=== PATIENT | female | born 1985 | race Caucasian/White ===

== ENCOUNTER → 2019-05-22 | Outpatient (CLI) | payer OTHER ==
--- NOTE | 2019-05-22 13:44 | ECGEPIP ---
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 Electronically Signed on 05-22-2019 13:44:09 EDT by Edgar Fisher
== END ==
LOC: M EKG 13:03
PROVIDERS: ATTEND Nurse Practitioner Women's Health
DX: O24.111 Pre-existing type 2 diabetes mellitus, in pregnancy, first trimester (principal); E11.9 Type 2 diabetes mellitus without complications; Z3A.09 9 weeks gestation of pregnancy

== ENCOUNTER 2019-10-21 10:19 | Outpatient (CLI) | payer OTHER ==
[~2019-10-21] VITALS: Ht 172.7 cm; Wt 109.0 kg
[2019-10-21 10:36] VITALS: BP 130/77
[2019-10-21] MEDS ORDERED: FLON27.5 NARES (11:05)
[2019-10-21] MEDS ORDERED: LABE200T32 PO (11:05)
[2019-10-21] MEDS ORDERED: ALBU83IN NEB (11:05)
[2019-10-21] MEDS ORDERED: GNP28TAB2 PO (11:05)
[2019-10-21] MEDS ORDERED: ALLE60TA69 PO (11:05)
[2019-10-21] MEDS ORDERED: EYEDRO5 OP (11:05)
[2019-10-21] MEDS ORDERED: ASPI81CH33 PO (11:05)
--- NOTE | 2019-10-21 11:13 | REPVR ---
PROCEDURE INFORMATION: Exam: US Biophysical Profile Without Non-Stress Test Exam date and time: 10/21/2019 10:59 AM Age: 34 years old Clinical indication: Screening exam; Routine US screening of fetus; Third; ; Additional info: Non reactive nst, chtn, gdm TECHNIQUE: Imaging protocol: US biophysical profile without non-stress testing. COMPARISON: No relevant prior studies available. FINDINGS: heart rate: 147 bpm. Presentation: Cephalic. Placenta: Fundal, grade 1. No previa. Amniotic fluid index: 8.3 cm (largest pocket 3.4 cm) BIOPHYSICAL PROFILE: Breathin/2 Gross body movements: 2/2 tone: 2/2 Qualitative amniotic fluid: 2/2 Biophysical Profile Score: 8/8 DOPPLER: Umbilical artery Doppler: S/D ratio 3.18. IMPRESSION: Biophysical profile score is 8 out of 8. Electronically signed by: Saeed Estrada On 10/21/2019 11:13:03 AM
[2019-10-21 12:35] VITALS: BP 114/58
--- NOTE | 2019-10-21 14:31 | IPNPDOC ---
Obstetrical Progress Note Date of Service Oct 21, 2019 Subjective 34-year-old 5, para 4 at 31 weeks 2 days, presents from the OB office for 9. Reactive NST. She reports active movements. She denies any vaginal bleeding, leakage of fluid or contractions. Objective: Vital signs stable and afebrile. Category 1 rate tracing. Gen.: Well-appearing, no acute distress Abdomen: Soft, nontender, gravid. Formal ultrasound ordered showing 8 out of 8 biophysical profile Assessment: 34-year-old 5, para 4, 31 weeks 2 days estimated gestational age with reassuring status. Plan: Discharge home and follow-up Sunday for office appointment. labor precautions and kick count instructions Objective Vital Signs Date Time Temp Pulse Resp B/P (MAP) Pulse Ox O2 Delivery O2 Flow Rate FiO2 10/21/19 12:35 97.3 80 18 114/58 (76) Assessment Variability: Moderate Accelerations: Positive Heart Rate Tracing: Category I Tocometer Contractions: No Assessment and Plan Age: 34 : 5 Livin Status: Reassuring SIMRAN KUHN MD. Oct 21, 2019 14:31
== END 2019-10-21 12:35 | disposition home or self-care (01) ==
LOC: M LDO 10:19
PROVIDERS: ATTEND Obstetrics & Gynecology
DX: O26.893 Other specified pregnancy related conditions, third trimester (principal); Z3A.31 31 weeks gestation of pregnancy
CPT/HCPCS: 59025; 76815; 76819; 76820; G0378; G0463

== ENCOUNTER → 2019-11-07 | Outpatient (CLI) | payer OTHER ==
[~2019-11-07] MED LIST: ALBU83IN NEB; ALLE60TA69 PO; ASPI81CH33 PO; EYEDRO5 OP; FLON27.5 NARES; GNP28TAB2 PO; LABE200T32 PO
--- NOTE | 2019-11-07 10:33 | REPVR ---
PROCEDURE INFORMATION: Exam: US Biophysical Profile Without Non-Stress Test Exam date and time: 11/07/2019 9:55 AM Age: 34 years old Clinical indication: Screening exam; Routine US screening of fetus; Third; ; Additional info: Non-reactive nst TECHNIQUE: Imaging protocol: US biophysical profile without non-stress testing. COMPARISON: US OB 10/21/2019 11:00 AM FINDINGS: Single living intrauterine fetus in cephalic presentation. The heart rate is 147 bpm. The estimated gestational age by the 1st ultrasound exam is 33 weeks and 6 days with an MARY JO of 12/20/2019. Amniotic fluid volume MILO measures 8.3 cm which is borderline low. Placenta: The placenta is fundal, grade I, with no previa or abruptio. BIOPHYSICAL PROFILE: Breathin/2 Gross body movements: 2/2 tone: 2/2 Qualitative amniotic fluid: 2/2 Biophysical Profile Score: 8/8 The umbilical artery S/D ratio measures 2.14 which is within normal limits. The umbilical artery RI measured 0.53 which is within normal limits. The umbilical artery PSV is 49.0 cm/sec and EDV is 22.9 cm/sec. IMPRESSION: 1. Single living intrauterine fetus in cephalic presentation. The heart rate is 147 bpm. The estimated gestational age by the first ultrasound exam is 33 weeks and 6 days with an MARY JO of 12/20/2019. Amniotic fluid volume MILO measures 8.3 cm which is borderline low. 2. Biophysical profile score is 8 out of 8. Electronically signed by: David Mendiola On 11/07/2019 10:32:48 AM
== END ==
LOC: M RAD 08:56
PROVIDERS: ATTEND Obstetrics & Gynecology
DX: O36.8330 Maternal care for abnormalities of the fetal heart rate or rhythm, third trimester, not applicable or unspecified (principal); Z3A.33 33 weeks gestation of pregnancy

== ENCOUNTER 2019-12-07 11:59 | Inpatient (IN) | payer OTHER ==
[~2019-12-07] VITALS: Ht 172.7 cm; Wt 110.4 kg
[2019-12-07] VITALS (32 sets, daily range): BP systolic 114–173; BP diastolic 61–97
--- NOTE | 2019-12-07 13:25 | HPEPDOC ---
Obstetrical History & Physical General Date of Admission Dec 07, 2019 at 11:59 History of Present Illness 34yo at 38+1wks presenting for IOL for h/o CHTN on labetalol and preexisiting DM (no meds). Patient noted to have h/o 2 prior sections and 2 prior successful VBACs, patient desires TOLAC for this . Denies VB, LOF, regular ctx's, or DFM. Chief Complaint: Induction of labor Information Provided By: Patient Care Care: Good Care Dating Final EDC: Dec 20, 2019 Final EDC for Daily Update: Dec 20, 2019 Final EDC by: LMP (c/w 9+5wk U/S on [id number]) Antepartum Course Diagnos(e)s Preexisting DM (diet-controlled) complicating Preexisting hypertension complicating Obesity complicating History of section x2, history of successful x2 Height (inches): 68 Pre- weight (lbs.): 236 Admission Weight (lbs.): 241 Change in Weight (lbs.): 5 Past Medical History Past Obstetrical History : Past Obstetrical History: Multigravida ( - G1: PLTCS for arrest of dilation/NRFHR, G2: 7fxm8ex, G3: RLTCS for NRFHR 1rcc3fd, G4: 5gdp6rf, G5: current) Past Medical History Medical History Asthma CHTN DMII Allergic rhinitis Surgical History: section (2007, 2014), Gallbladder, Other (Left oopherectomy 2013) Family History Significant Family History: Hypertension (Mother, Father, PGM, Siblings) Social History Marital Status: Family situation: Spouse/partner home Psychosocial History: No pertinent psych hx * Smoker: non-smoker Alcohol: Denies Drugs: denies Abuse Violence Screening Have you been hit/kicked/slapp: No Have you been sexually assault: No Imunizations Tdap status: current ([id number]) Influenza Status: declined Allergies Coded Allergies: SEASONAL ALLERGIES (Verified Allergy, Intermediate, 12/07/19) Medications Scheduled Aspirin (Aspirin) 81 Mg Tab.chew, 1 TAB PO DAILY for pain Fexofenadine HCl (Didi Allergy) 60 Mg Tablet, 1 TAB PO QPM for allergy symptoms Fluticasone Furoate (Flonase Sensimist) 5.9 Ml [place].susp, 2 PUFF NARES QPM Labetalol HCl (Labetalol HCl) 200 Mg Tablet, 200 MG PO BID Pnv No.95/Ferrous Fum/Folic AC ( Vitamins Tablet) 1 Each Tablet, 1 TAB PO DAILY Tetrahydroz/Dext 70/Peg 400/Pv (Eye Drops) 15 Ml Drops, 1 SELINA OP QPM Scheduled PRN Albuterol Sulf (Albuterol Sulfate) 2.5 Mg/3 Ml Vial.neb, 1 VIAL NEB Q4HP PRN for wheezing Physical Examination Physical Examination GENERAL: Alert and oriented times three. ABDOMEN: Gravid and non-tender to touch. FETUS: Is vertex (VTX) by sterile vaginal examination (SVE), fetus is vertex (VTX) by Dima. CARDS: well-perfused RESP: no exaggerated respiratory effort observed, no cough EXTREMITIES: No edema. : NEFG, no abnml vaginal discharge, no pooling, SVE /-2 Laboratory Data 24H LABS Laboratory Tests 2 12/07/19 12:07: Serology Scanned Report Hepatitis B Testing Urine Culture: No Growth Pertinent Laboratoy Data Blood Type: AB+ RBC Antibody Screen: Negative HIV: Negative Hepatitis B: Negative Rapid Plasma Reagin: Nonreactive Rubella: Immune Varicella: Immune Chlamydia/Gonorrhea: Negative Group B Streptococcus: Negative (11/13/2019) Quad Screen Test: Declined Cystic Fibrosis: Negative Glucose Tolerance Test: 198 Anatomy Ultrasound Ultrasound Date: Aug 04, 2019 Placenta Location: Posterior Normal Anatomy: Yes Placenta Previa: No Vaginal Examination Dilation: 3 cm Effacement: 70% Station: -2 Cervical Consistency: Soft Cervical Position: Posterior Presentation: Cephalic presentation Assessment Heart Rate (FHR): 145 Variability: Moderate Accelerations: Positive Decelerations: None Tocometer Contractions: No Multi-drug resistant Organism: No history of MDRO Assessment/Plan Assessment Vita is a 34yo at 38+1wks presenting to L&D for IOL for CHTN on labetalol and DMII (no meds). Patient has h/o 2 prior sections and 2 prior successful VBACs. Patient desires TOLAC for this . GBS neg. EFW 2900g. SVE /-2. Membranes intact. Plan Admit and orient. Cord Cutter and consent. Diet: clears Group B Streptococcus (GBS) negative. Labs and intravenous (IV) per unit protocol. Counseled on Pitocin and induction of labor (IOL). We discussed placement of IUPC for monitoring of MVUs once membranes ruptured for closer monitoring of uterine activity. Continue labetalol 200mg BID Continue singulair, flonase Lactated Ringers (LR): at 125mL/hr. Anticipate normal spontaneous delivery (). C-S as appropriate. ASPEN HERNANDEZ DO Dec 07, 2019 13:25
[2019-12-07 13:26] LABS: HEMATOCRIT 37.7 % (36.0-47.0); HEMOGLOBIN 12.2 g/dl (12.0-15.5); MEAN CORPUSCULAR HEMOGLOBIN 28.8 pg (27.0-33.0); MEAN CORPUSCULAR HGB CONC 32.4 g/dl (32.0-36.5); MEAN CORPUSCULAR VOLUME 88.9 fl (80.0-96.0); PLATELET COUNT, AUTOMATED 327 10^3/uL (150-450); RED BLOOD COUNT 4.24 10^6/uL (4.00-5.40); WHITE BLOOD COUNT 8.5 10^3/uL (4.0-10.0)
[2019-12-07 13:48] LABS: GLUCOSE,RANDOM 96 MG/DL (LESS THAN 200)
[2019-12-07] MEDS ORDERED: FENTANYL 2MCG/ML ROPIVACAINE 0.2% IN 0.9% NACL 100ML IVBAG As Ordered ONE (16:32)
[2019-12-07] MEDS ORDERED: EPIDURAL COMMENT XX SCH (18:00)
[2019-12-07] MEDS ORDERED: ONDANSETRON 4MG/2ML VIAL IV PRN (18:00)
[2019-12-07] MEDS ORDERED: diphenhydrAMINE 50MG/ML VIAL (J1200) IV PRN (18:00)
[2019-12-07] MEDS ORDERED: FENTANYL/ROPIVACAINE/NACL BAG 100 ML EPIDURAL SCH (18:00)
[2019-12-07] MEDS ORDERED: REFRIGERATOR IV KEYS XX PRN (18:00)
[2019-12-07] MEDS ORDERED: EPIDURAL/PCA KEYS XX PRN (18:00)
[2019-12-07] MEDS ORDERED: NALOXONE INJ 0.4MG/1ML VIAL (J2310 PER 1MG) IV PRN (18:00)
[2019-12-07] MEDS ORDERED: ePHEDrine SULFATE 25 MG/5 ML(5MG/ML) SYRINGE IV PRN (18:00)
[2019-12-07] MEDS ORDERED: LACTATED RINGER'S 1000 ML IV PRN (18:00)
--- NOTE | 2019-12-07 18:13 | IPNPDOC ---
Obstetrical Progress Note Date of Service Dec 07, 2019 Subjective Patient feeling ctx's but reports tolerable. Objective Vital Signs Date Time Temp Pulse Resp B/P (MAP) Pulse Ox O2 Delivery O2 Flow Rate FiO2 12/07/19 16:44 79 142/79 (100) 12/07/19 12:21 97.6 18 Assessment Heart Rate (FHR): 140 Variability: Moderate Accelerations: Positive Decelerations: None Heart Rate Tracing: Category I Tocometer Contractions: Yes Frequency: every 2-5 min. Sterile Vaginal Examination Dilation: 4 cm Effacement (%): 80% Station: -2 Cervical Consistency: Soft Cervical Position: Middle Postion/Presentation: Cephalic presentation Assessment and Plan Status: Reassuring Group B Streptococcus: Negative Anticipate: Vaginal Delivery Additional Comments Pitocin protocol at 6mU/min. SVE now 4/80/-2. FHRT cat I until difficulty keeping FHR on external monitor. Patient counseled and consented for AROM. Patient amenable to AROM. AROM performed at 1558 notable for clear fluid. IUPC and FSE placed for closer monitoring showing cat I FHRT. Patient may have epidural if desired. Continue pitocin protocol to MVUs of 180-200. Patient desires to proceed, safe to continue. Late entry due to patient acuity: patient seen at 1555, note completed at 1813 ASPEN HERNANDEZ DO Dec 07, 2019 18:13
--- NOTE | 2019-12-07 18:16 | IPNPDOC ---
Obstetrical Progress Note Date of Service Dec 07, 2019 Subjective Patient received epidural for pain control but only working on left side. Objective Vital Signs Date Time Temp Pulse Resp B/P (MAP) Pulse Ox O2 Delivery O2 Flow Rate FiO2 12/07/19 16:44 79 142/79 (100) 12/07/19 12:21 97.6 18 Assessment Heart Rate (FHR): 140 Variability: Moderate Accelerations: Positive Decelerations: Variable Heart Rate Tracing: Category II Tocometer Contractions: Yes Frequency: every 2-5 min. Sterile Vaginal Examination Dilation: 5 cm Effacement (%): 80% Station: -1 Cervical Consistency: Soft Cervical Position: Anterior Postion/Presentation: Cephalic presentation Assessment and Plan Status: Reassuring Group B Streptococcus: Negative Anticipate: Vaginal Delivery Additional Comments Notified by RN that IUPC was displaced during epidural placement. SVE revealed 5/80/-1. IUPC replaced. FHRT notable for intermittent variable decels. Pitocin at 8mU/min. Positional changes applied to assist with epidural to work on right side and to improve FHRT. Will continue to monitor closely for expectant . If variable decels continue, consider amnioinfusion. Patient desires to proceed, safe to continue. ASPEN HERNANDEZ DO Dec 07, 2019 18:16
--- NOTE | 2019-12-07 20:52 | DNPDOC ---
[facility] Delivery Note Delivery Note DATE OF DELIVERY: 12/07/2019 PREDELIVERY DIAGNOSIS: 1.) 38+1/7 weeks' gestation and labor. 2.) Pre-existing hypertension complicating 3.) Pre-existing diabetes complicating 4.) Obesity complicating 5.) History of previous section POST DELIVERY DIAGNOSIS: 1.) 38+1/7 weeks' gestation and labor. 2.) Pre-existing hypertension complicating 3.) Pre-existing diabetes complicating 4.) Obesity complicating 5.) History of previous section 6.) Vaginal after section PROCEDURE: Vaginal after section RECYCLING CREW SUPERVISOR: Dr. Aspen Hernandez ANESTHESIA: Epidural. ESTIMATED BLOOD LOSS: 100 mL. FINDINGS: 5 pound 5 ounce 2410g female , Score 9/9, nuchal cord times x1. DELIVERY SUMMARY: FHRT notable for deep variable decels despite positional changes. SVE revealed c/c/+3. Patient prepped for delivery. With excellent maternal effort over 2 pu shes, spontaneous vaginal delivery of a viable female . Presentation was OA with restitution to ROT with left shoulder anterior position. Nuchal cord x1 reduced on perineum. Anterior shoulder and body delivered spontaneously. Infant with vigorous cry on delivery field therefore placed on maternal abdomen to be dried. Pitocin IV bolus initiated. Inspection revealed a vaginal floor laceration that was repaired with 2-0 vicryl in running fashion with hemostasis achieved. Three vessel cord clamped x2 and cut by FOB. Third stage spontaneous with intact placenta. Fundal massage revealed firm uterine tone with hemostasis appreciated. Mother and infant stable and bonding upon my leaving the room. EBL 100ml. ASPEN HERANNDEZ DO Dec 07, 2019 20:50
--- NOTE | 2019-12-08 07:15 | IPNPDOC ---
Progress Note Date of Service: Dec 08, 2019 Day#: 1 Progress Note SUBJECT: 34yo s/p doing well day # 1. She has been ambulating, voiding spontaneously without issue and tolerating regular diet. Breast feeding without issue. Reports lochia is decreasing. Reports pain c ontrolled. OBJECTIVE: VITAL SIGNS: Within normal limits, afebrile. Alert and oriented times three. RESP: no exaggerated respiratory effort appreciated, no cough CARDS: well-perfused Abdomen: Fundus firm at U-2. Soft, NTTP. : Small lochia, no edema ASSESSMENT: 34yo s/p doing well day # 1. PNC c/b CHTN on labetalol and diet-controlled DMII, and obesity. Normal to mild-ranging BP, afebrile, hemodynamically stable with no evidence of infection. PLAN: 1. Discharge to home tomorrow 2. Tylenol and Motrin for pain PRN. 3. Encourage breast feeding and ambulation. 4. Diabetic diet. 5. Continue labetalol 200mg BID, monitor vitals q4h and PRN VS, I&O, 24H, [facility] Vital Signs/I&O Vital Signs Date Time Temp Pulse Resp B/P (MAP) Pulse Ox O2 Delivery O2 Flow Rate FiO2 12/07/19 22:01 90 110/61 12/07/19 18:41 18 12/07/19 18:38 97.7 I&O- Last 24 Hours up to 6 AM 12/08/19 06:00 Intake Total 2063 ml Output Total 1600 ml Balance 463 ml Laboratory Data 24H LABS Laboratory Tests 2 12/07/19 12:07: Serology Scanned Report Hepatitis B Testing 12/07/19 13:01: Bedside Glucose (Misc Panel) 108H 12/07/19 13:07: Nucleated Red Blood Cells % (auto) 0.0, Random Glucose 96 12/07/19 19:18: Bedside Glucose (Misc Panel) 78 CBC/BMP Laboratory Tests 12/07/19 13:07 ASPEN HERNANDEZ DO Dec 08, 2019 07:15
[2019-12-08 17:44] VITALS: BP 138/74
[2019-12-08 21:00] VITALS: BP 128/73
--- NOTE | 2019-12-09 04:22 | IPNPDOC ---
Progress Note Date of Service: Dec 09, 2019 Day#: 2 Progress Note SUBJECT: 34yo s/p doing well day # 2. She has been ambulat ing, voiding spontaneously without issue and tolerating regular diet. Breast feeding without issue. Reports lochia is decreasing. Reports pain controlled. OBJECTIVE: VITAL SIGNS: Within normal limits, afebrile. Alert and oriented times three. RESP: no exaggerated respiratory effort appreciated, no cough CARDS: well-perfused Abdomen: Fundus firm at U-2. Soft, NTTP. : Small lochia, no edema ASSESSMENT: 34yo s/p doing well day # 2. PNC c/b CHTN on labetalol and diet-controlled DMII, and obesity. Normal to mild-ranging BP, afebrile, hemodynamically stable with no evidence of infection. PLAN: 1. Discharge to home today 2. Tylenol and Motrin for pain PRN. 3. Encourage breast feeding and ambulation. 4. Diabetic diet. 5. Continue labetalol 200mg BID, monitor vitals q4h and PRN VS, I&O, 24H, Fishbone Vital Signs/I&O Vital Signs Date Time Temp Pulse Resp B/P (MAP) Pulse Ox O2 Delivery O2 Flow Rate FiO2 12/08/19 21:00 75 16 128/73 (91) 96 Room Air 12/08/19 17:44 98.3 ASPEN HERNANDEZ DO Dec 09, 2019 04:22
[2019-12-09 05:38] VITALS: BP 147/75
[2019-12-09 09:15] VITALS: BP 147/75
[2019-12-09 09:45] VITALS: BP 135/72
== END 2019-12-09 12:50 | disposition home or self-care (01) | DRG 805 ==
LOC: M LDI 11:59 → M OBS 23:12
PROC: 10E0XZZ Delivery of Products of Conception, External Approach (ICD-10-PCS; principal; 2019-12-07)
PROC: 0HQ9XZZ Repair Perineum Skin, External Approach (ICD-10-PCS; 2019-12-07)
PROC: 10907ZC Drainage of Amniotic Fluid, Therapeutic from Products of Conception, Via Natural or Artificial Opening (ICD-10-PCS; 2019-12-07)
PROC: 3E033VJ Introduction of Other Hormone into Peripheral Vein, Percutaneous Approach (ICD-10-PCS; 2019-12-07)
DX: O10.02 Pre-existing essential hypertension complicating childbirth (principal); Z37.0 Single live birth; O24.12 Pre-existing type 2 diabetes mellitus, in childbirth; O99.214 Obesity complicating childbirth; E66.9 Obesity, unspecified; O34.211 Maternal care for low transverse scar from previous cesarean delivery; Z3A.38 38 weeks gestation of pregnancy; Z79.899 Other long term (current) drug therapy; O76 Abnormality in fetal heart rate and rhythm complicating labor and delivery; O69.81X0 Labor and delivery complicated by cord around neck, without compression, not applicable or unspecified; O70.0 First degree perineal laceration during delivery

== ENCOUNTER → 2020-09-02 | Outpatient (CLI) | payer OTHER ==
[2020-09-02 12:48] LABS: INR 0.98; PROTHROMBIN TIME 13.2 SECONDS (12.5-14.3)
[2020-09-02 12:59] LABS: ALBUMIN 4.6 GM/DL (3.2-5.2); ALT/SGPT 180 U/L (12-78); BILIRUBIN,DIRECT 0.2 MG/DL (0.0-0.2); BILIRUBIN,TOTAL 0.4 MG/DL (0.2-1.0); IRON (FE) 84 UG/DL (50-170); PERCENT SATURATION 18.8 % (13.2-45.0); TOTAL IRON BINDING CAPACITY 446 UG/DL (250-450); TOTAL PROTEIN 8.5 GM/DL (6.4-8.2)
[2020-09-02 13:15] LABS: HEPATITIS B SURFACE ANTIGEN NEGATIVE (NEGATIVE)
[2020-09-02 13:42] LABS: HEPATITIS B CORE ANTIBODY IGM NEGATIVE (NEGATIVE); HEPATITIS C VIRUS ABY INDEX 0.1 INDEX (<0.8)
[2020-09-02 13:45] LABS: HEPATITIS A ANTIBODY IGM NEGATIVE (NEGATIVE)
== END ==
LOC: M LAB 12:03
PROVIDERS: ATTEND Internal Medicine Gastroenterology
DX: R94.5 Abnormal results of liver function studies (principal)

== ENCOUNTER → 2020-09-21 | Outpatient (CLI) | payer OTHER ==
--- NOTE | 2020-09-21 10:08 | REP ---
INDICATION: RUQ ABD PAIN COMPARISON: None TECHNIQUE: Real time B-mode condon scale ultrasound examination using curved array transducer. FINDINGS: Liver is mildly enlarged measuring greater than 19 cm in craniocaudal length and demonstrates mild to moderate fatty infiltration without focal hepatic lesion identified. Pancreas is unremarkable. Spleen is mildly enlarged and measures 11.4 x 12.3 x 4.8 cm (splenic index 673). No focal splenic lesion identified. Patient is status post cholecystectomy with mild compensatory biliary ductal dilatation. Common bile duct measures 11.5 mm diameter. Right kidney is normal in appearance and measures 11.0 x 6.5 x 5.5 cm. Left kidney measures 11.9 x 5.5 x 6.0 cm with possible nonobstructing midpole stone. Color Doppler evaluation demonstrates mild enlargement to the main portal vein at 16 mm diameter along with mildly increased velocities with the main portal vein at 45 cm/sec, but demonstrating normal flow direction. There is loss of phasicity of the hepatic veins. Findings suggest element of early portal hypertension and correlation may be warranted. IMPRESSION: 1. Hepatosteatosis. 2. Mild hepatosplenomegaly is suggested along with possible early portal hypertension. 3. Possible nonobstructing left renal calculus. <Electronically signed by Regis Duarte > 09/21/20 [id number]
== END ==
LOC: M RAD 08:49
PROVIDERS: ATTEND Internal Medicine Gastroenterology
DX: R94.5 Abnormal results of liver function studies (principal); R16.0 Hepatomegaly, not elsewhere classified

== ENCOUNTER → 2020-11-03 | Outpatient (CLI) | payer OTHER ==
[2020-11-03 16:11] LABS: ALBUMIN 4.5 GM/DL (3.2-5.2); BILIRUBIN,DIRECT 0.1 MG/DL (0.0-0.2); BILIRUBIN,TOTAL 0.4 MG/DL (0.2-1.0); TOTAL PROTEIN 8.3 GM/DL (6.4-8.2)
== END ==
LOC: M LAB 14:03
PROVIDERS: ATTEND Internal Medicine Gastroenterology
DX: K75.81 Nonalcoholic steatohepatitis (NASH) (principal)

== ENCOUNTER → 2020-11-17 | Outpatient (CLI) | payer OTHER ==
--- NOTE | 2020-11-17 15:05 | REP ---
INDICATION: ABNORMAL FINDINGS ON DX IMAGING OF LIVER AND BILIA. COMPARISON: None. TECHNIQUE: 3T multiplanar MRI imaging of the abdomen attention liver and spleen was obtained using various sequences. FINDINGS: The signal intensity of the liver is normal and has not "dropped out" on out of phase imaging. There is a Herve's lobe of the liver. The AP dimension at the midclavicular line is 10 cm. The maximal AP dimension of the spleen is 10 cm. Pancreas, adrenal glands, and kidneys are within normal limits. There is no free fluid. There is no para-aortic adenopathy. The cortical marrow signal seen throughout the examination is within normal limits. IMPRESSION: 1. Borderline spleen but no amanda splenomegaly. 2. No evidence of fatty infiltration of the liver or hepatomegaly. <Electronically signed by Ehsan Wooten > 11/17/20 [id number]
== END ==
LOC: M PLAIMG 13:19
PROVIDERS: ATTEND Internal Medicine Gastroenterology
DX: R93.2 Abnormal findings on diagnostic imaging of liver and biliary tract (principal)

== ENCOUNTER → 2020-12-21 | Outpatient (CLI) | payer OTHER ==
--- NOTE | 2020-12-21 16:16 | REP ---
INDICATION: K75.81 MONTOYA R94.5 ELEVATED LFT'S. COMPARISON: There are no prior MRCP for comparison prior abdominal MRI without contrast 11/17/2020 reviewed. TECHNIQUE: MRCP with limited images of the solid intraabdominal and retroperitoneal organs FINDINGS: The maximal dimension of the common bile duct is 12.6 mm. The common bile duct does taper to the region of the ampulla of Vater but rather abruptly without abnormal abrupt termination. There are no abnormal signal voids within the CBD, CHD, or right or left hepatic ducts. There is no evidence of abnormal pancreatic duct dilatation.. The pancreatic duct is thread-like. There is no evidence of intrahepatic ductal dilatation. The liver, spleen, pancreas, adrenal glands, and kidneys are seen in limited fashion which show no evidence of a gross abnormality or significant change compared to the prior exam. IMPRESSION: CBD dilatation as described above. <Electronically signed by Ehsan Wooten > 12/21/20 [id number]
== END ==
LOC: M RAD 12:30
PROVIDERS: ATTEND Internal Medicine Gastroenterology
DX: K75.81 Nonalcoholic steatohepatitis (NASH) (principal); R94.5 Abnormal results of liver function studies

== ENCOUNTER → 2021-04-08 | Outpatient (CLI) | payer OTHER ==
[~2021-04-08] MED LIST changes: +LABE200T3 PO; -LABE200T32 PO
[2021-04-08 14:41] LABS: ALBUMIN 4.3 GM/DL (3.2-5.2); ALT/SGPT 40 U/L (12-78); BILIRUBIN,DIRECT < 0.1 MG/DL (0.0-0.2); BILIRUBIN,TOTAL 0.3 MG/DL (0.2-1.0); TOTAL PROTEIN 8.1 GM/DL (6.4-8.2)
== END ==
LOC: M LAB 12:38
PROVIDERS: ATTEND Internal Medicine Gastroenterology
DX: K75.81 Nonalcoholic steatohepatitis (NASH) (principal); R94.5 Abnormal results of liver function studies